=== PATIENT | male | born 1950 | race Caucasian/White ===

== ENCOUNTER 2016-06-12 12:24 | Inpatient (IN) | payer OTHER ==
[~2016-06-12] VITALS: Ht 180.3 cm; Wt 59.4 kg
[~2016-06-12 12:24] MED LIST: ACIDOPHILUS1 EAC4 PO; AMITIZA24 MICROGR PO; AMITIZA8 MICROGRA PO; AMLODIPINE BESYL5 MG PO; ANTACID ULTRA1000 M1 PO; ATIVAN0.5 MG PO; ATIVAN1 MG PO; ATROVENT 00.5 MG/2.5 IH; B COMPLETE1 EACH PO; BACTRIM,SEPT1 TABLET PO; CALCITRIOL0.25 MCG PO; CALCIUM ACETAT667 M2 PO; CALCIUM ACETAT667 MG PO; CELEXA20 MG PO; CIPRO250 MG PO; CIPRO750 MG PO; CITALOPRAM HBR20 MG PO; CITALOPRAM HBR40 MG PO; CLARITIN,ALAVAR10 MG PO; CLONIDINE HCL0.1 MG PO; COMBIVENT RESPIM4 GM IH; COMPAZINE5 MG PO; COMPLETE MULTI1 EAC1 PO; COUMADIN PO; COUMADIN1 MG PO; COUMADIN2 MG PO; COUMADIN3 MG PO; COUMADIN4 MG PO; COUMADIN5 MG PO; COZAAR25 MG PO; CYCLOBENZAPRINE10 MG PO; DEPAKOTE500 MG PO; DESYREL100 MG PO; DESYREL300 MG PO; DILAUDID2 MG PO; DIVALPROEX SOD500 MG PO; DOCUSATE SODIU100 MG PO; DULCOLAX10 MG PR; DUONEB 2.5-0.5 M3 ML IH; DURAGESIC50 MCG TD; DURAGESIC75 MCG TD; EFUDEX 5% CREAM25 GM TP; EPOGEN,PRO20000 UNIT SC; ERGOCALCIF50000 UNIT PO; FENOFIBRATE54 M1 PO; FENTANYL1 EAC2 TD; FENTANYL1 EAC5 TD; FISH OIL 1,0001 EA10 PO; FISH OIL 1,0001 EAC7 PO; FLEET ENEMA-AD118 ML PR; FLEET MINERAL133 ML PR; FLEXERIL10 MG PO; FLOMAX0.4 MG PO; FLONASE16 G1 BOTH NARES; FLUOROURACIL40 GM TP; GABAPENTIN100 MG PO; GABAPENTIN300 MG PO; GABAPENTIN400 MG PO; GENTAMICIN SULF30 GM TP; GLIPIZIDE10 MG PO; GLIPIZIDE5 MG PO; GLUCERNA 1 CAL237 ML PO; HEMORRHOIDAL OI57 G2 PR; HEPARIN SO5000 UNITS SC; HYDRALAZINE HCL25 MG PO; HYDROMORPHONE HC2 MG PO; IRON325 M1 PO; KADIAN30 MG PO; KEFLEX500 MG PO; KLONOPIN0.5 M1 PO; LACTULOSE10 GM/151 PO; LASIX80 MG PO; LEVAQUIN500 MG PO; LEXAPRO10 MG PO; LIDOCAINE700 MG TD; LISINOPRIL20 MG PO; LORAZEPAM0.5 MG PO; LORAZEPAM1 MG PO; LOSARTAN POTASS25 MG PO; LOVENOX80 MG/0.8 SC; MEGACE40 MG PO; MEGESTROL ACETA20 MG PO; METOCLOPRAMIDE H5 MG PO; METOPROLOL TART25 MG PO; MILK OF MAGN PO; MILK OF MAGNESI10 ML PO; MORPHINE SULFAT30 M1 PO; MOXIFLOXACIN H400 MG PO; MUCINEX600 MG PO; NEURONTIN300 MG PO; NEURONTIN600 MG PO; NICODERM CQ1 EAC1 TD; NICODERM CQ1 EAC2 TD; NORVASC5 MG PO; OXYCODONE HCL5 MG PO; PANTOPRAZOLE SO40 MG PO; PERCOCET 5/31 TABLET PO; POLYETHYLENE GL17 GM PO; PRAVACHOL40 MG PO; PRAVACHOL80 MG PO; PRAVASTATIN SOD40 MG PO; PROAIR HFA8.5 GM IH; PROBIOTIC1 EAC2 PO; PROCHLORPERAZINE5 MG PO; PROMETHAZINE HC25 M1 PO; PROTONIX40 MG PO; PROVENTIL,2.5 MG/3 M IH; RENO CAPS SOFTGE1 MG PO; RENVELA800 MG PO; ROCEPHIN 2 GM VI2 GM IM; SANTYL30 GM TP; SILVADENE20 GM TP; SIMVASTATIN20 MG PO; SODIUM BICARBO325 MG PO; SYMBICORT60 INHALA1 IH; SYMBICORT60 INHALAT IH; TAMIFLU75 MG PO; TAMSULOSIN HCL0.4 MG PO; TRAMADOL HCL50 MG PO; TRAZODONE HCL100 MG PO; TYLENOL REGULA325 MG PO; TYLENOL WITH C1 EACH PO; ULTRAM50 MG PO; VENTOLIN HFA18 GM IH; VITAMIN D31000 UNI2 PO; VITAMIN D31000 UNIT PO; VITAMIN D3400 UNI1 PO; WARFARIN SODIU2.5 MG PO; WARFARIN SODIUM3 MG PO; [UNRECOGNIZED DRUG - OTHER] IV
[2016-06-12 20:07] LABS: CHLORIDE 93 mEq/L (99-109); POTASSIUM 5.1 mEq/L (3.7-5.4); SODIUM 140 mEq/L (136-147)
[2016-06-12 20:09] LABS: GLUCOSE 76 mg/dL (70-99)
[2016-06-12 20:10] LABS: ANION GAP 12 MEQ/L (2-14)
[2016-06-12 20:10] LABS: INTER. NORMALIZED RATIO 1.6; PTT 103.1 (25-32)
[2016-06-12 20:11] LABS: MCH 29.6 PG (29.0-34.0); MCHC 30.5 G/DL (30.0-36.0); MCV 96.9 FL (86-99); MEAN PLAT.VOLUME 10.6 uM^3 (9.0-12.4); PLATELET COUNT 153 K/uL (156-360); RBC DIS.WIDTH-CV 17.1 % (11.8-14.6); RBC DIS.WIDTH-SD 55.4 % (39-53); RED BLOOD COUNT 1.96 M/uL (4.00-5.50); WHITE BLOOD COUNT 4.9 K/uL (4.1-10.2)
[2016-06-12 20:13] LABS: GFR ESTIMATE (CALCULATED) 13 mL/min/; UREA NITROGEN (BUN) 50 mg/dL (9-23)
[2016-06-12 20:15] LABS: CREATINE KINASE 44 IU/L (1-294)
[2016-06-12] MEDS ORDERED: VIBRAMYCIN100 MG PO (21:42)
[2016-06-12] MEDS ORDERED: CLONIDINE HCL0.1 MG PO (21:42)
[2016-06-12] MEDS ORDERED: LIPITOR10 MG PO (21:47)
[2016-06-12] MEDS ORDERED: WELLBUTRIN SR150 MG PO (21:47)
[2016-06-12] MEDS ORDERED: PHENERGAN-CODE120 ML PO (21:50)
[2016-06-12 22:02] VITALS: BP 119/49
[2016-06-13 02:07] VITALS: BP 136/65
[2016-06-13 02:12] LABS: POINT-OF-CARE METER ID UU14188577
[2016-06-13 04:05] VITALS: BP 122/58
[2016-06-13 07:43] LABS: ALKALINE PHOSPHATASE 86 IU/L (3-129); ANION GAP 9 MEQ/L (2-14); CHLORIDE 92 MEQ/L (99-109); GFR ESTIMATE (CALCULATED) 11 mL/min/; GLUCOSE 85 mg/dL (70-99); MAGNESIUM 2.1 mg/dl (1.3-2.7); POTASSIUM 5.4 MEQ/L (3.7-5.4); SAMPLE HEMOLYSIS CHECK 0; SAMPLE ICTERIC CHECK 0; SAMPLE LIPEMIA CHECK 0; SODIUM 138 MEQ/L (136-147); TOTAL BILIRUBIN 0.7 MG/DL (0.0-1.0); UREA NITROGEN (BUN) 53 mg/dL (9-23)
[2016-06-13 08:03] LABS: EOSINOPHIL (%) 3.3 % (0-5); EOSINOPHIL COUNT 0.2 K/uL (0-0.3); HEMATOCRIT 20.3 % (38.0-50.0); LYMPHOCYTE COUNT 0.7 K/uL (1.0-2.8); MCH 29.5 PG (29.0-34.0); MEAN PLAT.VOLUME 11.1 uM^3 (9.0-12.4); MONOCYTE (%) 11.4 % (3-12); MONOCYTE COUNT 0.6 K/uL (0-0.8); NEUTROPHIL (%) 72.2 % (45-76); PLATELET COUNT 165 K/uL (156-360); RBC DIS.WIDTH-CV 17.7 % (11.8-14.6); WHITE BLOOD COUNT 5.5 K/uL (4.1-10.2)
[2016-06-13 08:05] VITALS: BP 134/62
[2016-06-13 08:12] LABS: MCV 92.3 FL (86-99)
[2016-06-13 12:34] LABS: INTER. NORMALIZED RATIO 1.4; PROTHROMBIN TIME 14.5 (9.2-11.2)
[2016-06-13 13:05] VITALS: BP 151/70
[2016-06-13 13:53] LABS: POINT-OF-CARE METER ID UU14149397
[2016-06-13 15:57] VITALS: BP 143/66
[2016-06-13 20:14] VITALS: BP 141/63
[2016-06-13 22:09] LABS: POINT-OF-CARE METER ID UU14188577
[2016-06-14] VITALS (7 sets, daily range): BP systolic 131–144; BP diastolic 60–74
[2016-06-14 05:45] LABS: INTER. NORMALIZED RATIO 2.3
[2016-06-14 06:17] LABS: PROTHROMBIN TIME 23.7 (9.2-11.2)
[2016-06-14 06:46] LABS: POINT-OF-CARE METER ID UU14188577
[2016-06-14 10:45] LABS: EOSINOPHIL (%) 3.3 % (0-5); EOSINOPHIL COUNT 0.2 K/uL (0-0.3); HEMATOCRIT 26.7 % (38.0-50.0); IMMATURE GRANULOCYTE (%) 0.4 % (0.0-0.7); LYMPHOCYTE COUNT 0.7 K/uL (1.0-2.8); MCH 28.3 PG (29.0-34.0); MCHC 31.1 G/DL (30.0-36.0); MCV 91.1 FL (86-99); MEAN PLAT.VOLUME 10.2 uM^3 (9.0-12.4); MONOCYTE (%) 13.6 % (3-12); MONOCYTE COUNT 0.8 K/uL (0-0.8); NEUTROPHIL (%) 69.3 % (45-76); NEUTROPHIL COUNT 3.8 K/uL (1.8-6.4); PLATELET COUNT 183 K/uL (156-360); RBC DIS.WIDTH-CV 18.4 % (11.8-14.6); RBC DIS.WIDTH-SD 61.2 % (39-53); WHITE BLOOD COUNT 5.5 K/uL (4.1-10.2)
[2016-06-14 10:46] LABS: RED BLOOD COUNT 2.93 M/uL (4.00-5.50)
[2016-06-14 12:05] LABS: POINT-OF-CARE METER ID UU14188577
[2016-06-14 16:55] LABS: POINT-OF-CARE METER ID UU14188577
[2016-06-14 21:59] LABS: POINT-OF-CARE METER ID UU14188577
[2016-06-15 04:12] VITALS: BP 149/77
[2016-06-15 06:34] LABS: PROTHROMBIN TIME 20.9 (9.2-11.2)
[2016-06-15 06:39] LABS: HEMATOCRIT 25.8 % (38.0-50.0); MCH 29.9 PG (29.0-34.0); MCHC 32.2 G/DL (30.0-36.0); MCV 92.8 FL (86-99); RBC DIS.WIDTH-CV 17.5 % (11.8-14.6); RBC DIS.WIDTH-SD 59.4 % (39-53); RED BLOOD COUNT 2.78 M/uL (4.00-5.50); WHITE BLOOD COUNT 6.9 K/uL (4.1-10.2)
[2016-06-15 06:50] LABS: ANION GAP 12 MEQ/L (2-14); CHLORIDE 95 MEQ/L (99-109); GFR ESTIMATE (CALCULATED) 12 mL/min/; GLUCOSE 103 mg/dL (70-99); POTASSIUM 5.2 MEQ/L (3.7-5.4); SAMPLE HEMOLYSIS CHECK 0; SAMPLE ICTERIC CHECK 0; SAMPLE LIPEMIA CHECK 0; SODIUM 136 MEQ/L (136-147); UREA NITROGEN (BUN) 44 mg/dL (9-23)
[2016-06-15 06:51] LABS: POINT-OF-CARE METER ID UU14188577
[2016-06-15 07:15] LABS: MEAN PLAT.VOLUME 10.8 uM^3 (9.0-12.4); PLATELET COUNT 182 K/uL (156-360)
[2016-06-15 11:46] LABS: POINT-OF-CARE METER ID UU14188577
[2016-06-15 12:23] VITALS: BP 128/67
[2016-06-15 15:41] VITALS: BP 123/63
[2016-06-15 16:30] LABS: POINT-OF-CARE METER ID UU14188577
[2016-06-15 19:54] VITALS: BP 114/56
[2016-06-15 21:12] LABS: POINT-OF-CARE METER ID UU14149397
[2016-06-15 23:44] VITALS: BP 123/61
[2016-06-16 04:07] VITALS: BP 126/59
[2016-06-16 06:09] LABS: INTER. NORMALIZED RATIO 1.6; PROTHROMBIN TIME 16.2 (9.2-11.2)
[2016-06-16 08:45] LABS: MCH 28.4 PG (29.0-34.0); MCHC 30.7 G/DL (30.0-36.0); MCV 92.4 FL (86-99); MEAN PLAT.VOLUME 10.4 uM^3 (9.0-12.4); PLATELET COUNT 206 K/uL (156-360); RBC DIS.WIDTH-CV 17.5 % (11.8-14.6); RBC DIS.WIDTH-SD 58.5 % (39-53); RED BLOOD COUNT 3.03 M/uL (4.00-5.50); WHITE BLOOD COUNT 5.5 K/uL (4.1-10.2)
[2016-06-16 09:03] VITALS: BP 116/56
[2016-06-16 09:06] LABS: EOSINOPHIL (%) 6.9 % (0-5); EOSINOPHIL COUNT 0.4 K/uL (0-0.3); IMMATURE GRANULOCYTE (%) 0.2 % (0.0-0.7); MONOCYTE (%) 12.1 % (3-12); MONOCYTE COUNT 0.7 K/uL (0-0.8); NEUTROPHIL (%) 62.6 % (45-76); NEUTROPHIL COUNT 3.5 K/uL (1.8-6.4)
[2016-06-16 12:14] LABS: POINT-OF-CARE METER ID UU14188577
[2016-06-16 12:30] VITALS: BP 125/59
[2016-06-16 16:09] LABS: POINT-OF-CARE METER ID UU14188577
[2016-06-16 16:46] VITALS: BP 143/68
[2016-06-16 19:39] VITALS: BP 130/60
[2016-06-16 21:20] LABS: POINT-OF-CARE METER ID UU14188577
[2016-06-17] VITALS (7 sets, daily range): BP systolic 115–150; BP diastolic 60–72
[2016-06-17 04:56] LABS: HEMATOCRIT 27.3 % (38.0-50.0); MCH 29.3 PG (29.0-34.0); MCHC 31.1 G/DL (30.0-36.0); MCV 94.1 FL (86-99); MEAN PLAT.VOLUME 9.9 uM^3 (9.0-12.4); PLATELET COUNT 196 K/uL (156-360); RBC DIS.WIDTH-CV 17.1 % (11.8-14.6); RBC DIS.WIDTH-SD 55.2 % (39-53); WHITE BLOOD COUNT 5.7 K/uL (4.1-10.2)
[2016-06-17 05:08] LABS: CHLORIDE 95 mEq/L (99-109); POTASSIUM 5.4 mEq/L (3.7-5.4); SODIUM 136 mEq/L (136-147)
[2016-06-17 05:09] LABS: GLUCOSE 90 mg/dL (70-99)
[2016-06-17 05:11] LABS: ANION GAP 11 MEQ/L (2-14)
[2016-06-17 05:13] LABS: GFR ESTIMATE (CALCULATED) 12 mL/min/
[2016-06-17 05:14] LABS: UREA NITROGEN (BUN) 45 mg/dL (9-23)
[2016-06-17 05:26] LABS: INTER. NORMALIZED RATIO 1.8; PROTHROMBIN TIME 18.3 (9.2-11.2)
[2016-06-17 11:21] LABS: POINT-OF-CARE METER ID UU14149397
[2016-06-17 22:23] LABS: POINT-OF-CARE METER ID UU14149397
[2016-06-18 05:06] LABS: HEMATOCRIT 26.1 % (38.0-50.0); MCH 29.4 PG (29.0-34.0); MCHC 31.4 G/DL (30.0-36.0); MCV 93.5 FL (86-99); MEAN PLAT.VOLUME 10.5 uM^3 (9.0-12.4); PLATELET COUNT 226 K/uL (156-360); RBC DIS.WIDTH-CV 16.8 % (11.8-14.6); RBC DIS.WIDTH-SD 54.2 % (39-53); RED BLOOD COUNT 2.79 M/uL (4.00-5.50)
[2016-06-18 05:11] LABS: CHLORIDE 98 mEq/L (99-109); POTASSIUM 5.2 mEq/L (3.7-5.4); SODIUM 139 mEq/L (136-147)
[2016-06-18 05:12] LABS: MAGNESIUM 2.4 mg/dL (1.3-2.7); PROTHROMBIN TIME 21.3 (9.2-11.2)
[2016-06-18 05:15] LABS: ANION GAP 12 MEQ/L (2-14)
[2016-06-18 05:17] LABS: GFR ESTIMATE (CALCULATED) 9 mL/min/
[2016-06-18 05:18] LABS: UREA NITROGEN (BUN) 62 mg/dL (9-23)
[2016-06-18 05:22] LABS: GLUCOSE 115 mg/dL (70-99)
[2016-06-18 05:25] VITALS: BP 124/60
[2016-06-18 07:10] LABS: POINT-OF-CARE METER ID UU14149397
[2016-06-18 11:57] VITALS: BP 167/78
[2016-06-18] MEDS ORDERED: OXYCODONE HCL15 MG PO (14:15)
[2016-06-18] MEDS ORDERED: COUMADIN2 MG PO (14:17)
== END 2016-06-18 17:00 | DRG 535 ==
LOC: EME 12:24 → 3EAST 20:41 → EDOF 20:41 → 3EAST 06-13 01:00
PROVIDERS: Emergency Medicine; Family Medicine; Hospitalist; Internal Medicine; Nurse Practitioner Adult Health; Physician Assistant Medical
PROC: 30233N1 Transfusion of Nonautologous Red Blood Cells into Peripheral Vein, Percutaneous Approach (ICD-10-PCS; principal; 2016-06-12)
PROC: 5A1D60Z (ICD-10-PCS; 2016-06-13)
DX: S32.591A Other specified fracture of right pubis, initial encounter for closed fracture (principal); N18.6 End stage renal disease; J18.9 Pneumonia, unspecified organism; I42.9 Cardiomyopathy, unspecified; D62 Acute posthemorrhagic anemia; I13.2 Hypertensive heart and chronic kidney disease with heart failure and with stage 5 chronic kidney disease, or end stage renal disease; Z68.1 Body mass index [BMI] 19.9 or less, adult; D68.2 Hereditary deficiency of other clotting factors; J90 Pleural effusion, not elsewhere classified; M84.48XA Pathological fracture, other site, initial encounter for fracture; F33.9 Major depressive disorder, recurrent, unspecified; W18.39XA Other fall on same level, initial encounter; E11.22 Type 2 diabetes mellitus with diabetic chronic kidney disease; E11.40 Type 2 diabetes mellitus with diabetic neuropathy, unspecified; F17.210 Nicotine dependence, cigarettes, uncomplicated; I25.10 Atherosclerotic heart disease of native coronary artery without angina pectoris; I35.0 Nonrheumatic aortic (valve) stenosis; K21.9 Gastro-esophageal reflux disease without esophagitis; G25.81 Restless legs syndrome; S70.01XA Contusion of right hip, initial encounter; R63.4 Abnormal weight loss; G89.29 Other chronic pain; G40.909 Epilepsy, unspecified, not intractable, without status epilepticus; G43.909 Migraine, unspecified, not intractable, without status migrainosus; G47.30 Sleep apnea, unspecified; R09.02 Hypoxemia; D63.1 Anemia in chronic kidney disease; N40.0 Benign prostatic hyperplasia without lower urinary tract symptoms; E83.39 Other disorders of phosphorus metabolism; D69.6 Thrombocytopenia, unspecified; Z99.2 Dependence on renal dialysis; Z91.81 History of falling; Z98.61 Coronary angioplasty status; Z86.14 Personal history of Methicillin resistant Staphylococcus aureus infection; Z95.2 Presence of prosthetic heart valve; Z79.01 Long term (current) use of anticoagulants; Z89.432 Acquired absence of left foot; Y92.018 Other place in single-family (private) house as the place of occurrence of the external cause; Z88.0 Allergy status to penicillin
CPT/HCPCS: 71010; 72192; 73502; 80048; 80053; 80069; 82550; 82948; 83735; 84100; 85025; 85027; 85610; 85730; 86850; 86900; 86901; 86920; 87070; 87205; 94640 76; 94667; 94668; 94799; 99202; 99281; 99285; J0881; J1270; J1756; J1815; J3010; J7050; P9016; Q0164

== ENCOUNTER 2016-06-26 02:40 | Inpatient (IN) | payer OTHER ==
[~2016-06-26] VITALS: Ht 180.3 cm; Wt 62.3 kg
[~2016-06-26 02:40] MED LIST changes: +LIPITOR10 MG PO; +OXYCODONE HCL15 MG PO; +PHENERGAN-CODE120 ML PO; +VIBRAMYCIN100 MG PO; +WELLBUTRIN SR150 MG PO
[2016-06-26 04:29] LABS: HEMATOCRIT 29.6 % (38.0-50.0); MCH 29.5 PG (29.0-34.0); MCHC 30.1 G/DL (30.0-36.0); MEAN PLAT.VOLUME 9.9 uM^3 (9.0-12.4); PLATELET COUNT 176 K/uL (156-360); RBC DIS.WIDTH-CV 17.2 % (11.8-14.6); RBC DIS.WIDTH-SD 56.9 % (39-53); RED BLOOD COUNT 3.02 M/uL (4.00-5.50); WHITE BLOOD COUNT 6.4 K/uL (4.1-10.2)
[2016-06-26 04:34] LABS: INFLUENZA A VIRAL ANTIGEN NEGATIVE; INFLUENZA B VIRAL ANTIGEN NEGATIVE
[2016-06-26 04:34] LABS: BASE EXCESS 15.2 mEq/L (-3 to +3); BICARBONATE 40.8 mEq/L (22-26); CARBOXY HGB 1.9 % (0-5); COMMENTS - BLOOD GASES C+; DEVICE HHFNC; METHEMOGLOBIN 0.8 % (0-1.5); O2 FLOW 45 L/MIN; PCO2 56 mm Hg (35-45); PO2 79 mm Hg (80-100); SITE LR; pH 7.47 (7.35-7.45)
[2016-06-26 04:35] LABS: FI02 90 %
[2016-06-26 04:36] LABS: CHLORIDE 97 mEq/L (99-109); POTASSIUM 4.6 mEq/L (3.7-5.4); SODIUM 144 mEq/L (136-147)
[2016-06-26 04:37] LABS: GLUCOSE 72 mg/dL (70-99)
[2016-06-26 04:39] LABS: ANION GAP 11 MEQ/L (2-14)
[2016-06-26 04:40] LABS: INTER. NORMALIZED RATIO 3.1
[2016-06-26 04:41] LABS: GFR ESTIMATE (CALCULATED) 15 mL/min/
[2016-06-26 04:42] LABS: UREA NITROGEN (BUN) 26 mg/dL (9-23)
[2016-06-26 04:48] LABS: PROTHROMBIN TIME 32.4 (9.2-11.2); PTT 70.6 (25-32); TROP-I INTERPRETATION NEGATIVE; TROPONIN-I 0.04 ng/mL (0.0-0.30)
[2016-06-26 05:31] LABS: POINT-OF-CARE METER ID UU14100415
[2016-06-26 08:06] VITALS: BP 152/72; BP 52/72
[2016-06-26 08:14] LABS: BASOPHIL COUNT 0.1 K/uL (0-0.1); EOSINOPHIL (%) 4.3 % (0-5); EOSINOPHIL COUNT 0.3 K/uL (0-0.3); IMMATURE GRANULOCYTE (%) 0.2 % (0.0-0.7); LYMPHOCYTE COUNT 1.3 K/uL (1.0-2.8); MONOCYTE (%) 8.3 % (3-12); MONOCYTE COUNT 0.5 K/uL (0-0.8); NEUTROPHIL (%) 66.2 % (45-76); NEUTROPHIL COUNT 4.2 K/uL (1.8-6.4)
[2016-06-26 09:27] LABS: TOTAL BILIRUBIN 0.6 mg/dL (0.0-1.0)
[2016-06-26 09:28] LABS: ALKALINE PHOSPHATASE 137 IU/L (3-129)
[2016-06-26 09:49] LABS: METH RESISTANT S AUREUS PCR POSITIVE (NEGATIVE)
[2016-06-26] MEDS ORDERED: LIPITOR10 MG PO (09:56)
[2016-06-26 09:58] LABS: PROBE CHECK PASS
[2016-06-26] MEDS ORDERED: CALCIUM ACETAT667 MG PO (09:58)
[2016-06-26] MEDS ORDERED: VOLTAREN 1% GE100 GM TP (10:03)
[2016-06-26] MEDS ORDERED: COLACE100 MG PO (10:04)
[2016-06-26] MEDS ORDERED: NICODERM CQ1 EAC1 TD (10:08)
[2016-06-26] MEDS ORDERED: NEPRO CARB STE237 ML PO (10:08)
[2016-06-26] MEDS ORDERED: NOVOLOG 10100 UNITS/ SC (10:10)
[2016-06-26] MEDS ORDERED: RENAL CAPS SOFTG1 MG PO (10:12)
[2016-06-26] MEDS ORDERED: COUMADIN2 MG PO (10:14)
[2016-06-26] MEDS ORDERED: OXYCODONE HCL20 M1 PO (10:17)
[2016-06-26 11:27] VITALS: BP 158/74
[2016-06-26 15:30] VITALS: BP 154/78
[2016-06-26 19:36] VITALS: BP 145/71
[2016-06-27 00:02] VITALS: BP 125/77
[2016-06-27 05:45] LABS: INTER. NORMALIZED RATIO 3.9; PROTHROMBIN TIME 41.9 (9.2-11.2)
[2016-06-27 06:01] LABS: HEMATOCRIT 28.4 % (38.0-50.0); MCH 29.4 PG (29.0-34.0); MCHC 30.6 G/DL (30.0-36.0); MCV 95.9 FL (86-99); MEAN PLAT.VOLUME 10.4 uM^3 (9.0-12.4); PLATELET COUNT 162 K/uL (156-360); RBC DIS.WIDTH-CV 16.9 % (11.8-14.6); RBC DIS.WIDTH-SD 58.9 % (39-53); RED BLOOD COUNT 2.96 M/uL (4.00-5.50)
[2016-06-27 06:02] LABS: WHITE BLOOD COUNT 3.2 K/uL (4.1-10.2)
[2016-06-27 06:12] LABS: ANION GAP 11 MEQ/L (2-14); CHLORIDE 93 MEQ/L (99-109); GFR ESTIMATE (CALCULATED) 10 mL/min/; MAGNESIUM 2.8 mg/dl (1.3-2.7); POTASSIUM 4.9 MEQ/L (3.7-5.4); SAMPLE HEMOLYSIS CHECK 0; SAMPLE ICTERIC CHECK 0; SAMPLE LIPEMIA CHECK 0; SODIUM 137 MEQ/L (136-147)
[2016-06-27 06:13] LABS: GLUCOSE 281 mg/dL (70-99); UREA NITROGEN (BUN) 40 mg/dL (9-23)
[2016-06-27 12:16] VITALS: BP 159/75
[2016-06-27 16:12] VITALS: BP 151/68
[2016-06-27 20:36] VITALS: BP 158/73
[2016-06-28] VITALS (7 sets, daily range): BP systolic 100–160; BP diastolic 40–70
[2016-06-28 05:39] LABS: INTER. NORMALIZED RATIO 2.4; PROTHROMBIN TIME 25.3 (9.2-11.2)
[2016-06-29 04:10] VITALS: BP 140/74
[2016-06-29 06:04] LABS: INTER. NORMALIZED RATIO 1.7; PROTHROMBIN TIME 17.5 (9.2-11.2)
[2016-06-29 08:30] VITALS: BP 140/50
[2016-06-29 09:34] LABS: ANION GAP 10 MEQ/L (2-14); CHLORIDE 97 MEQ/L (99-109); POTASSIUM 4.2 MEQ/L (3.7-5.4); SAMPLE HEMOLYSIS CHECK 0; SAMPLE ICTERIC CHECK 0; SAMPLE LIPEMIA CHECK 0; SODIUM 138 MEQ/L (136-147)
[2016-06-29 09:46] LABS: GFR ESTIMATE (CALCULATED) 11 mL/min/; UREA NITROGEN (BUN) 53 mg/dL (9-23)
[2016-06-29 09:47] LABS: GLUCOSE 133 mg/dL (70-99)
[2016-06-29 10:51] LABS: HEMATOCRIT 31.7 % (38.0-50.0); MCH 29.6 PG (29.0-34.0); MCHC 30.3 G/DL (30.0-36.0); MCV 97.8 FL (86-99); MEAN PLAT.VOLUME 11.2 uM^3 (9.0-12.4); PLATELET COUNT 178 K/uL (156-360); RBC DIS.WIDTH-CV 17.2 % (11.8-14.6); RBC DIS.WIDTH-SD 61.1 % (39-53); RED BLOOD COUNT 3.24 M/uL (4.00-5.50)
[2016-06-29 10:58] LABS: WHITE BLOOD COUNT 8.5 K/uL (4.1-10.2)
[2016-06-29 16:30] VITALS: BP 100/40
[2016-06-29 20:31] VITALS: BP 130/58
[2016-06-29 23:39] VITALS: BP 120/59
[2016-06-30 07:34] VITALS: BP 121/84
[2016-06-30 10:42] LABS: INTER. NORMALIZED RATIO 1.3; PROTHROMBIN TIME 13.4 (9.2-11.2)
[2016-06-30 16:20] VITALS: BP 100/50
[2016-06-30 21:31] VITALS: BP 141/67
[2016-06-30 23:34] VITALS: BP 131/68
[2016-07-01 06:41] LABS: INTER. NORMALIZED RATIO 1.3; PROTHROMBIN TIME 13.4 (9.2-11.2)
[2016-07-01 07:32] VITALS: BP 154/72
[2016-07-01 16:42] VITALS: BP 154/73
[2016-07-01] MEDS ORDERED: PREDNISONE10 MG PO (17:55)
[2016-07-01] MEDS ORDERED: LEVAQUIN500 MG PO (17:56)
[2016-07-02 00:15] VITALS: BP 165/76
[2016-07-02 05:46] LABS: INTER. NORMALIZED RATIO 1.3; PROTHROMBIN TIME 13.4 (9.2-11.2)
[2016-07-02 06:35] VITALS: BP 150/70
[2016-07-02 08:45] LABS: EOSINOPHIL (%) 2.3 % (0-5); EOSINOPHIL COUNT 0.2 K/uL (0-0.3); HEMATOCRIT 30.8 % (38.0-50.0); IMMATURE GRANULOCYTE (%) 0.6 % (0.0-0.7); INSTRUMENT ABS NEUTROPHIL CT 5.2 K/uL; MCH 29.7 PG (29.0-34.0); MCHC 30.5 G/DL (30.0-36.0); MCV 97.2 FL (86-99); MEAN PLAT.VOLUME 10.2 uM^3 (9.0-12.4); MONOCYTE (%) 8.7 % (3-12); MONOCYTE COUNT 0.6 K/uL (0-0.8); NEUTROPHIL (%) 74.5 % (45-76); NEUTROPHIL COUNT 5.2 K/uL (1.8-6.4); PLATELET COUNT 154 K/uL (156-360); RBC DIS.WIDTH-CV 18.1 % (11.8-14.6); RBC DIS.WIDTH-SD 62.5 % (39-53); RED BLOOD COUNT 3.17 M/uL (4.00-5.50)
[2016-07-02 08:57] LABS: ANION GAP 10 MEQ/L (2-14); CHLORIDE 100 MEQ/L (99-109); SAMPLE HEMOLYSIS CHECK 0; SAMPLE ICTERIC CHECK 0; SAMPLE LIPEMIA CHECK 0; SODIUM 138 MEQ/L (136-147)
[2016-07-02 09:13] LABS: GFR ESTIMATE (CALCULATED) 9 mL/min/; GLUCOSE 109 mg/dL (70-99); UREA NITROGEN (BUN) 67 mg/dL (9-23)
== END 2016-07-02 16:09 | DRG 190 ==
LOC: EME → EDBD 02:40 → 3EAST 05:36 → EDOF 05:36 → 3EAST 07:25
PROVIDERS: Emergency Medicine; Internal Medicine; Internal Medicine Nephrology
PROC: 5A1D60Z (ICD-10-PCS; principal; 2016-06-27)
DX: J44.0 Chronic obstructive pulmonary disease with (acute) lower respiratory infection (principal); J18.9 Pneumonia, unspecified organism; N18.6 End stage renal disease; J96.21 Acute and chronic respiratory failure with hypoxia; D68.51 Activated protein C resistance; I13.2 Hypertensive heart and chronic kidney disease with heart failure and with stage 5 chronic kidney disease, or end stage renal disease; I42.9 Cardiomyopathy, unspecified; J98.11 Atelectasis; J44.1 Chronic obstructive pulmonary disease with (acute) exacerbation; Z99.2 Dependence on renal dialysis; I11.0 Hypertensive heart disease with heart failure; E11.65 Type 2 diabetes mellitus with hyperglycemia; Z99.81 Dependence on supplemental oxygen; E11.22 Type 2 diabetes mellitus with diabetic chronic kidney disease; I50.9 Heart failure, unspecified; I25.10 Atherosclerotic heart disease of native coronary artery without angina pectoris; K21.9 Gastro-esophageal reflux disease without esophagitis; G47.33 Obstructive sleep apnea (adult) (pediatric); M79.7 Fibromyalgia; Z89.421 Acquired absence of other right toe(s); Z89.432 Acquired absence of left foot; Z95.2 Presence of prosthetic heart valve; E66.9 Obesity, unspecified; Z95.1 Presence of aortocoronary bypass graft; G40.909 Epilepsy, unspecified, not intractable, without status epilepticus; B18.2 Chronic viral hepatitis C; I35.0 Nonrheumatic aortic (valve) stenosis; S32.591D Other specified fracture of right pubis, subsequent encounter for fracture with routine healing; D50.9 Iron deficiency anemia, unspecified; E87.79 Other fluid overload
CPT/HCPCS: 36600; 71010; 71020; 80048; 80053; 80069; 80200; 82040; 82803; 82948; 83605; 83735; 83880; 84484; 85025; 85027; 85610; 85730; 86708 90; 87040; 87070; 87205; 87340; 87449; 87502; 87641; 93005; 94640; 94640 76; 94799; 97530 GO; 99202; 99281; 99285; J0881; J1270; J1644; J1756; J1956; J2920; J2930; J3260; J7050; J7512

== ENCOUNTER 2016-08-15 10:02 | Inpatient (IN) | payer OTHER ==
[~2016-08-15] VITALS: Ht 180.3 cm; Wt 68.5 kg
[~2016-08-15 10:02] MED LIST changes: +COLACE100 MG PO; +NEPRO CARB STE237 ML PO; +NOVOLOG 10100 UNITS/ SC; +OXYCODONE HCL20 M1 PO; +PREDNISONE10 MG PO; +RENAL CAPS SOFTG1 MG PO; +VOLTAREN 1% GE100 GM TP
[2016-08-15 11:08] LABS: ADD MIUA? YES; BILIRUBIN NEGATIVE; BLOOD SMALL; COLOR AMBER ((YELLOW)); GLUCOSE (STRIP) NEGATIVE; KETONES NEGATIVE; LEUKOCYTES NEGATIVE; NITRITE NEGATIVE; PROTEIN (STRIP) >=500; SPECIFIC GRAVITY 1.028 (1.000-1.030); UROBILINOGEN 0.2 MG/DL (0.2-1.0)
[2016-08-15 11:28] LABS: CHLORIDE 97 mEq/L (99-109); POTASSIUM 5.3 mEq/L (3.7-5.4); SODIUM 142 mEq/L (136-147)
[2016-08-15 11:30] LABS: GLUCOSE 104 mg/dL (70-99)
[2016-08-15 11:31] LABS: ANION GAP 17 MEQ/L (2-14)
[2016-08-15 11:32] LABS: TOTAL BILIRUBIN 0.6 mg/dL (0.0-1.0)
[2016-08-15 11:33] LABS: ALKALINE PHOSPHATASE 83 IU/L (3-129)
[2016-08-15 11:34] LABS: GFR ESTIMATE (CALCULATED) 21 mL/min/
[2016-08-15 11:35] LABS: UREA NITROGEN (BUN) 20 mg/dL (9-23)
[2016-08-15 11:43] LABS: BACTERIA 2+ /HPF; EPITHELIAL CELLS NONE SEEN /HPF; MUCUS NONE SEEN /LPF; RED BLOOD CELLS 30-40 /HPF (0-5); UCUL ADDED? YES; WHITE BLOOD CELLS 20-30 /HPF (0-5)
[2016-08-15] MEDS ORDERED: WELLBUTRIN XL150 MG PO (11:47)
[2016-08-15] MEDS ORDERED: MIRALAX17 GM PO (11:53)
[2016-08-15 11:55] LABS: EOSINOPHIL (%) 2.8 % (0-5); EOSINOPHIL COUNT 0.2 K/uL (0-0.3); HEMATOCRIT 36.3 % (38.0-50.0); IMMATURE GRANULOCYTE (%) 0.8 % (0.0-0.7); IMMATURE GRANULOCYTE COUNT 0.1 K/uL; INSTRUMENT ABS NEUTROPHIL CT 4.9 K/uL; LYMPHOCYTE COUNT 0.7 K/uL (1.0-2.8); MCH 31.2 PG (29.0-34.0); MCHC 30.9 G/DL (30.0-36.0); MCV 101.1 FL (86-99); MONOCYTE (%) 7.4 % (3-12); MONOCYTE COUNT 0.5 K/uL (0-0.8); NEUTROPHIL (%) 77.6 % (45-76); NEUTROPHIL COUNT 4.9 K/uL (1.8-6.4); NRBC (%) 0.3 /100 WBC (0-0); PLATELET COUNT 95 K/uL (156-360); RBC DIS.WIDTH-CV 18.1 % (11.8-14.6); RBC DIS.WIDTH-SD 67.6 % (39-53); RED BLOOD COUNT 3.59 M/uL (4.00-5.50); WHITE BLOOD COUNT 6.3 K/uL (4.1-10.2)
[2016-08-15] MEDS ORDERED: DEXAMETHASONE2 MG PO (11:56)
[2016-08-15] MEDS ORDERED: COUMADIN3 MG PO (11:57)
[2016-08-15] MEDS ORDERED: LINZESS290 MCG PO (12:03)
[2016-08-15 12:04] LABS: INTER. NORMALIZED RATIO 2.2; PTT 39.5 (25-32)
[2016-08-15] MEDS ORDERED: VENTOLIN HFA18 GM IH (12:05)
[2016-08-15] MEDS ORDERED: ACETAMINOPHEN325 M1 PO (12:07)
[2016-08-15 12:13] LABS: PROTHROMBIN TIME 22.5 (9.2-11.2)
[2016-08-15] MEDS ORDERED: VANCOMYCIN1 GM/200 M IV (12:26)
[2016-08-15 16:36] VITALS: BP 130/58
[2016-08-15 19:27] VITALS: BP 148/72
[2016-08-15 20:40] LABS: METH RESISTANT S AUREUS PCR POSITIVE (NEGATIVE)
[2016-08-15 20:43] LABS: PROBE CHECK PASS
[2016-08-15 21:27] LABS: POINT-OF-CARE METER ID UU13113781
[2016-08-16] VITALS (8 sets, daily range): BP systolic 125–172; BP diastolic 54–82
[2016-08-16 13:36] LABS: PROTHROMBIN TIME 42.3 (9.2-11.2)
[2016-08-16 21:26] LABS: POINT-OF-CARE METER ID UU14162508
[2016-08-17 06:58] LABS: POINT-OF-CARE METER ID UU14162508
[2016-08-17 07:19] VITALS: BP 189/80
[2016-08-17 11:15] VITALS: BP 161/77
[2016-08-17 14:23] LABS: HEMATOCRIT 30.7 % (38.0-50.0); MCH 31.4 PG (29.0-34.0); MCHC 31.3 G/DL (30.0-36.0); MCV 100.3 FL (86-99); MEAN PLAT.VOLUME 11.7 uM^3 (9.0-12.4); PLATELET COUNT 100 K/uL (156-360); RBC DIS.WIDTH-CV 17.6 % (11.8-14.6); RBC DIS.WIDTH-SD 65.1 % (39-53); RED BLOOD COUNT 3.06 M/uL (4.00-5.50); WHITE BLOOD COUNT 7.9 K/uL (4.1-10.2)
[2016-08-17 14:37] LABS: ANION GAP 11 MEQ/L (2-14); CHLORIDE 94 MEQ/L (99-109); GLUCOSE 81 mg/dL (70-99); SAMPLE HEMOLYSIS CHECK 0; SAMPLE ICTERIC CHECK 0; SAMPLE LIPEMIA CHECK 0
[2016-08-17 14:40] LABS: GFR ESTIMATE (CALCULATED) 12 mL/min/; POTASSIUM 6.1 MEQ/L (3.7-5.4); SODIUM 134 MEQ/L (136-147); UREA NITROGEN (BUN) 52 mg/dL (9-23)
[2016-08-17 14:53] LABS: PROTHROMBIN TIME 82.3 (9.2-11.2)
[2016-08-17 15:12] LABS: INTER. NORMALIZED RATIO 7.4
[2016-08-18 03:53] VITALS: BP 128/58
[2016-08-18 06:30] VITALS: BP 146/68
[2016-08-18 07:49] LABS: INTER. NORMALIZED RATIO 9.1
[2016-08-18 11:50] LABS: POINT-OF-CARE METER ID UU14162508
[2016-08-18 15:35] VITALS: BP 166/78
[2016-08-18 23:47] VITALS: BP 163/75
[2016-08-19 07:17] VITALS: BP 191/91
[2016-08-19 07:26] LABS: INTER. NORMALIZED RATIO 1.3; PROTHROMBIN TIME 13.3 (9.2-11.2)
[2016-08-19 15:54] VITALS: BP 193/90
[2016-08-19 16:55] LABS: POINT-OF-CARE METER ID UU14162508
[2016-08-19 20:30] VITALS: BP 184/88
[2016-08-20 03:57] VITALS: BP 158/82
[2016-08-20 08:22] LABS: HEMATOCRIT 30.5 % (38.0-50.0); MCH 31.2 PG (29.0-34.0); MCHC 31.5 G/DL (30.0-36.0); MEAN PLAT.VOLUME 12.3 uM^3 (9.0-12.4); PLATELET COUNT 121 K/uL (156-360); RBC DIS.WIDTH-SD 62.4 % (39-53); RED BLOOD COUNT 3.08 M/uL (4.00-5.50); WHITE BLOOD COUNT 6.2 K/uL (4.1-10.2)
[2016-08-20 08:39] LABS: ANION GAP 13 MEQ/L (2-14); CHLORIDE 99 MEQ/L (99-109); GFR ESTIMATE (CALCULATED) 11 mL/min/; GLUCOSE 84 mg/dL (70-99); SAMPLE HEMOLYSIS CHECK 0; SAMPLE ICTERIC CHECK 0; SAMPLE LIPEMIA CHECK 0; SODIUM 135 MEQ/L (136-147); UREA NITROGEN (BUN) 50 mg/dL (9-23)
[2016-08-20 08:40] LABS: POTASSIUM 6.1 MEQ/L (3.7-5.4); VANCOMYCIN, TROUGH 21.8 MCG/ML (10-20)
[2016-08-20 09:39] LABS: INTER. NORMALIZED RATIO 1.4; PROTHROMBIN TIME 14.1 (9.2-11.2)
[2016-08-20 11:50] VITALS: BP 126/59
[2016-08-20 11:58] LABS: POINT-OF-CARE METER ID UU14162508
[2016-08-20 15:25] VITALS: BP 158/61
[2016-08-20 16:31] LABS: POINT-OF-CARE METER ID UU14162508
[2016-08-20 20:27] VITALS: BP 122/78
[2016-08-20 23:43] VITALS: BP 126/82
[2016-08-21 03:31] VITALS: BP 118/68
[2016-08-21 06:31] LABS: POINT-OF-CARE METER ID UU14162508
[2016-08-21 07:35] LABS: INTER. NORMALIZED RATIO 2.1
[2016-08-21 07:36] LABS: PROTHROMBIN TIME 21.8 (9.2-11.2)
[2016-08-21 07:43] VITALS: BP 154/70
[2016-08-21 11:33] VITALS: BP 146/70
[2016-08-21] MEDS ORDERED: LEVOFLOXACIN500 MG PO (14:31)
[2016-08-21] MEDS ORDERED: VANCOMYCIN HCL1 GM IV (14:32)
[2016-08-21] MEDS ORDERED: COUMADIN1 MG PO (14:33)
[2016-08-21] MEDS ORDERED: NOVOLOG PE100 UNITS/ SC (14:36)
[2016-08-21] MEDS ORDERED: HYDROMORPHONE HC2 MG PO (14:36)
[2016-08-21] MEDS ORDERED: PROTONIX40 MG PO (14:36)
== END 2016-08-21 17:08 | DRG 981 ==
LOC: EME → EDBD 10:02 → EME 10:02 → 2EAST 14:08 → EDOF 14:08 → 4EAST 14:08 → 2EAST 08-16 20:09
PROVIDERS: Emergency Medicine; Internal Medicine; Internal Medicine Nephrology
PROC: 057Y3ZZ Dilation of Upper Vein, Percutaneous Approach (ICD-10-PCS; principal; 2016-08-20)
DX: J44.0 Chronic obstructive pulmonary disease with (acute) lower respiratory infection (principal); J15.9 Unspecified bacterial pneumonia; I13.2 Hypertensive heart and chronic kidney disease with heart failure and with stage 5 chronic kidney disease, or end stage renal disease; L89.150 Pressure ulcer of sacral region, unstageable; E11.22 Type 2 diabetes mellitus with diabetic chronic kidney disease; N18.6 End stage renal disease; D68.51 Activated protein C resistance; I50.30 Unspecified diastolic (congestive) heart failure; Z99.2 Dependence on renal dialysis; D68.32 Hemorrhagic disorder due to extrinsic circulating anticoagulants; E11.21 Type 2 diabetes mellitus with diabetic nephropathy; E11.40 Type 2 diabetes mellitus with diabetic neuropathy, unspecified; E11.51 Type 2 diabetes mellitus with diabetic peripheral angiopathy without gangrene; E11.622 Type 2 diabetes mellitus with other skin ulcer; L97.909 Non-pressure chronic ulcer of unspecified part of unspecified lower leg with unspecified severity; I35.0 Nonrheumatic aortic (valve) stenosis; B19.20 Unspecified viral hepatitis C without hepatic coma; D63.8 Anemia in other chronic diseases classified elsewhere; G40.909 Epilepsy, unspecified, not intractable, without status epilepticus; Z95.2 Presence of prosthetic heart valve; Z95.1 Presence of aortocoronary bypass graft; G81.91 Hemiplegia, unspecified affecting right dominant side; M47.892 Other spondylosis, cervical region; Z86.718 Personal history of other venous thrombosis and embolism; G89.4 Chronic pain syndrome; M25.552 Pain in left hip; M25.551 Pain in right hip; T82.858A Stenosis of other vascular prosthetic devices, implants and grafts, initial encounter; Z87.81 Personal history of (healed) traumatic fracture; I25.10 Atherosclerotic heart disease of native coronary artery without angina pectoris; F33.9 Major depressive disorder, recurrent, unspecified; Z89.439 Acquired absence of unspecified foot; Z22.322 Carrier or suspected carrier of Methicillin resistant Staphylococcus aureus; M87.852 Other osteonecrosis, left femur; M79.7 Fibromyalgia; G47.30 Sleep apnea, unspecified; I42.9 Cardiomyopathy, unspecified; K21.9 Gastro-esophageal reflux disease without esophagitis; E83.39 Other disorders of phosphorus metabolism; N25.81 Secondary hyperparathyroidism of renal origin; D63.1 Anemia in chronic kidney disease; L89.609 Pressure ulcer of unspecified heel, unspecified stage; C44.310 Basal cell carcinoma of skin of unspecified parts of face; D04.4 Carcinoma in situ of skin of scalp and neck; G25.81 Restless legs syndrome; N40.0 Benign prostatic hyperplasia without lower urinary tract symptoms; R09.02 Hypoxemia; N39.0 Urinary tract infection, site not specified; D50.9 Iron deficiency anemia, unspecified; E87.5 Hyperkalemia; E87.70 Fluid overload, unspecified; I95.9 Hypotension, unspecified; Y95 Nosocomial condition; T45.515A Adverse effect of anticoagulants, initial encounter; R60.0 Localized edema; R41.82 Altered mental status, unspecified
CPT/HCPCS: 70450; 71010; 73502; 80048; 80053; 80069; 80202; 81003; 82948; 83605; 84100; 85025; 85027; 85610; 85730; 87040; 87086; 87641; 87801; 92610 GN; 93005; 93931; 94760; 94799; 99202; 99281; 99285; C1725; C1769; J0692; J0696; J0881; J1644; J1756; J1815; J2250; J3010; J3370; J7042; J7050

== ENCOUNTER 2016-09-04 20:55 | Inpatient (IN) | payer OTHER ==
[~2016-09-04] VITALS: Ht 177.8 cm; Wt 54.4 kg
[~2016-09-04 20:55] MED LIST changes: +ACETAMINOPHEN325 M1 PO; +DEXAMETHASONE2 MG PO; +LEVOFLOXACIN500 MG PO; +LINZESS290 MCG PO; +MIRALAX17 GM PO; +NOVOLOG PE100 UNITS/ SC; +VANCOMYCIN HCL1 GM IV; +VANCOMYCIN1 GM/200 M IV; +WELLBUTRIN XL150 MG PO
[2016-09-04 22:16] LABS: HEMATOCRIT 31.8 % (38.0-50.0); MCH 30.1 PG (29.0-34.0); MCHC 30.5 G/DL (30.0-36.0); MCV 98.8 FL (86-99); RBC DIS.WIDTH-CV 17.2 % (11.8-14.6); RBC DIS.WIDTH-SD 62.3 % (39-53); RED BLOOD COUNT 3.22 M/uL (4.00-5.50)
[2016-09-04 22:18] LABS: BASE EXCESS 12.7 mEq/L (-3 to +3); BICARBONATE 37.4 mEq/L (22-26); CARBOXY HGB 2.9 % (0-5); METHEMOGLOBIN 1.1 % (0-1.5); PCO2 48 mm Hg (35-45); PO2 61 mm Hg (80-100)
[2016-09-04 22:19] LABS: COMMENTS - BLOOD GASES A+C+; DEVICE NCHH; FI02 50 %; O2 FLOW 50 L/MIN; SITE RR; TOTAL RESP RATE 20 resp/min
[2016-09-04 22:48] LABS: INTER. NORMALIZED RATIO 8.9
[2016-09-04 22:51] LABS: TROP-I INTERPRETATION POSITIVE; TROPONIN-I 14.97 ng/mL (0.0-0.30)
[2016-09-04 22:58] LABS: EOSINOPHIL (%) 0.8 % (0-5); EOSINOPHIL COUNT 0.1 K/uL (0-0.3); IMMATURE GRANULOCYTE (%) 0.9 % (0.0-0.7); IMMATURE GRANULOCYTE COUNT 0.1 K/uL; INSTRUMENT ABS NEUTROPHIL CT 12.3 K/uL; MONOCYTE (%) 8.5 % (3-12); MONOCYTE COUNT 1.3 K/uL (0-0.8); NEUTROPHIL (%) 82.7 % (45-76); NEUTROPHIL COUNT 12.3 K/uL (1.8-6.4); PLATELET COUNT 164 K/uL (156-360)
[2016-09-04 23:00] LABS: PTT 97 (25-32)
[2016-09-04 23:02] LABS: CHLORIDE 92 mEq/L (99-109); POTASSIUM 4.3 mEq/L (3.7-5.4); SODIUM 137 mEq/L (136-147)
[2016-09-04 23:04] LABS: GLUCOSE 128 mg/dL (70-99)
[2016-09-04 23:05] LABS: ANION GAP 15 MEQ/L (2-14)
[2016-09-04 23:06] LABS: TOTAL BILIRUBIN 0.9 mg/dL (0.0-1.0)
[2016-09-04 23:08] LABS: ALKALINE PHOSPHATASE 103 IU/L (3-129); GFR ESTIMATE (CALCULATED) 15 mL/min/
[2016-09-04 23:09] LABS: UREA NITROGEN (BUN) 36 mg/dL (9-23)
[2016-09-04 23:11] LABS: LIPASE 19 U/L (1.0-51.0)
[2016-09-04 23:25] LABS: BASE EXCESS 12.4 mEq/L (-3 to +3); BICARBONATE 37.3 mEq/L (22-26); CARBOXY HGB 2.4 % (0-5); PCO2 49 mm Hg (35-45); PO2 59 mm Hg (80-100); pH 7.49 (7.35-7.45)
[2016-09-04 23:27] LABS: COMMENTS - BLOOD GASES C+; DEVICE HHNC; FI02 100 %; O2 FLOW 60 L/MIN; SITE LB; TOTAL RESP RATE 19 resp/min
[2016-09-05] VITALS (23 sets, daily range): BP systolic 69–132; BP diastolic 38–83
[2016-09-05 00:24] LABS: MEAN PLAT.VOLUME 10.3 uM^3 (9.0-12.4); WHITE BLOOD COUNT 14.8 K/uL (4.1-10.2)
[2016-09-05] MEDS ORDERED: PRILOSEC20 MG PO (00:43)
[2016-09-05] MEDS ORDERED: RENVELA800 MG PO (00:45)
[2016-09-05] MEDS ORDERED: PROMETHAZINE HC25 M1 PO (00:50)
[2016-09-05] MEDS ORDERED: ZINC SULFATE220 MG PO (00:51)
[2016-09-05] MEDS ORDERED: RENAL CAPS SOFTG1 MG PO (00:55)
[2016-09-05] MEDS ORDERED: [UNRECOGNIZED DRUG - OTHER] PO (01:05)
[2016-09-05] MEDS ORDERED: WARFARIN SODIUM1 MG PO (01:07)
[2016-09-05 03:17] LABS: METH RESISTANT S AUREUS PCR POSITIVE (NEGATIVE)
[2016-09-05 03:19] LABS: PROBE CHECK PASS
[2016-09-05 06:23] LABS: POINT-OF-CARE METER ID UU13113731; POINT-OF-CARE USER ID PHATLC
[2016-09-05 07:14] LABS: HEMATOCRIT 29.6 % (38.0-50.0); MCH 30.1 PG (29.0-34.0); MCHC 30.4 G/DL (30.0-36.0); MEAN PLAT.VOLUME 11.4 uM^3 (9.0-12.4); PLATELET COUNT 174 K/uL (156-360); RBC DIS.WIDTH-CV 17.2 % (11.8-14.6); RBC DIS.WIDTH-SD 62.5 % (39-53); RED BLOOD COUNT 2.99 M/uL (4.00-5.50); WHITE BLOOD COUNT 14.2 K/uL (4.1-10.2)
[2016-09-05 07:35] LABS: ANION GAP 13 MEQ/L (2-14); CHLORIDE 92 MEQ/L (99-109); GFR ESTIMATE (CALCULATED) 15 mL/min/; GLUCOSE 119 mg/dL (70-99); POTASSIUM 4.6 MEQ/L (3.7-5.4); SAMPLE HEMOLYSIS CHECK 0; SAMPLE ICTERIC CHECK 0; SAMPLE LIPEMIA CHECK 0; SODIUM 136 MEQ/L (136-147); UREA NITROGEN (BUN) 39 mg/dL (9-23)
[2016-09-05 08:05] LABS: PROTHROMBIN TIME 110.7 (9.2-11.2); PTT 75.2 (25-32)
[2016-09-05 08:06] LABS: INTER. NORMALIZED RATIO 10.1
[2016-09-05 10:08] LABS: TROP-I INTERPRETATION POSITIVE; TROPONIN-I 18.74 ng/mL (0.0-0.30)
[2016-09-05 11:16] LABS: POINT-OF-CARE METER ID UU13113731
[2016-09-05 15:22] LABS: TROP-I INTERPRETATION POSITIVE; TROPONIN-I 16.35 ng/mL (0.0-0.30)
[2016-09-05 17:31] LABS: POINT-OF-CARE METER ID UU14162636
[2016-09-05 21:13] LABS: TROP-I INTERPRETATION POSITIVE
[2016-09-05 22:42] LABS: POINT-OF-CARE USER ID PHATLC
[2016-09-06] VITALS (21 sets, daily range): BP systolic 95–126; BP diastolic 58–75
[2016-09-06 07:32] LABS: HEMATOCRIT 25.5 % (38.0-50.0); MCH 30.6 PG (29.0-34.0); MCHC 30.2 G/DL (30.0-36.0); MCV 101.2 FL (86-99); MEAN PLAT.VOLUME 11.8 uM^3 (9.0-12.4); PLATELET COUNT 137 K/uL (156-360); RBC DIS.WIDTH-CV 17.1 % (11.8-14.6); RBC DIS.WIDTH-SD 62.2 % (39-53); RED BLOOD COUNT 2.52 M/uL (4.00-5.50); WHITE BLOOD COUNT 10.5 K/uL (4.1-10.2)
[2016-09-06 07:35] LABS: PTT 56.9 (25-32)
[2016-09-06 07:44] LABS: PROTHROMBIN TIME 20.8 (9.2-11.2)
[2016-09-06 07:47] LABS: ANION GAP 10 MEQ/L (2-14); CHLORIDE 97 MEQ/L (99-109); GFR ESTIMATE (CALCULATED) 27 mL/min/; GLUCOSE 97 mg/dL (70-99); POTASSIUM 4.1 MEQ/L (3.7-5.4); SAMPLE HEMOLYSIS CHECK 0; SAMPLE ICTERIC CHECK 0; SAMPLE LIPEMIA CHECK 0; SODIUM 139 MEQ/L (136-147); UREA NITROGEN (BUN) 26 mg/dL (9-23)
[2016-09-06 09:45] LABS: HBSG INDEX 0.31
[2016-09-06 09:47] LABS: BASE EXCESS 8.8 mEq/L (-3 to +3); COMMENTS - BLOOD GASES NEG A+C+; DEVICE VENT; FI02 70 %; METHEMOGLOBIN 1.3 % (0-1.5); MODE SPONT; PCO2 50 mm Hg (35-45); PO2 56 mm Hg (80-100); PRES. SUPPORT 10 CM/H2O; SITE LR; TOTAL RESP RATE 18 resp/min; pH 7.44 (7.35-7.45)
[2016-09-06 09:48] LABS: PEEP 5 CM/H20
[2016-09-06 12:25] LABS: POINT-OF-CARE METER ID UU13113731
[2016-09-06 16:16] LABS: POINT-OF-CARE METER ID UU13113731
[2016-09-06 20:42] LABS: HEMATOCRIT 24.3 % (38.0-50.0); MCH 30.5 PG (29.0-34.0); MCHC 30.5 G/DL (30.0-36.0); PLATELET COUNT 130 K/uL (156-360); RBC DIS.WIDTH-CV 17.3 % (11.8-14.6); RBC DIS.WIDTH-SD 63.4 % (39-53); RED BLOOD COUNT 2.43 M/uL (4.00-5.50); WHITE BLOOD COUNT 12.6 K/uL (4.1-10.2)
[2016-09-07] VITALS (23 sets, daily range): BP systolic 0–140; BP diastolic 0–74
[2016-09-07 01:10] LABS: TROP-I INTERPRETATION POSITIVE; TROPONIN-I 8.13 ng/mL (0.0-0.30)
[2016-09-07 05:40] LABS: POINT-OF-CARE METER ID UU13113731
[2016-09-07 06:29] LABS: HEMATOCRIT 21.8 % (38.0-50.0); MCH 32.1 PG (29.0-34.0); MCHC 31.2 G/DL (30.0-36.0); MCV 102.8 FL (86-99); MEAN PLAT.VOLUME 11.8 uM^3 (9.0-12.4); PLATELET COUNT 130 K/uL (156-360); RBC DIS.WIDTH-CV 17.4 % (11.8-14.6); RBC DIS.WIDTH-SD 65.8 % (39-53); RED BLOOD COUNT 2.12 M/uL (4.00-5.50); WHITE BLOOD COUNT 10.9 K/uL (4.1-10.2)
[2016-09-07 06:51] LABS: ANION GAP 11 MEQ/L (2-14); CHLORIDE 97 MEQ/L (99-109); GFR ESTIMATE (CALCULATED) 20 mL/min/; GLUCOSE 83 mg/dL (70-99); POTASSIUM 4.4 MEQ/L (3.7-5.4); SAMPLE HEMOLYSIS CHECK 0; SAMPLE ICTERIC CHECK 0; SAMPLE LIPEMIA CHECK 0; SODIUM 139 MEQ/L (136-147); UREA NITROGEN (BUN) 36 mg/dL (9-23)
[2016-09-07 06:51] LABS: PTT 73.1 (25-32)
[2016-09-07 06:52] LABS: PROTHROMBIN TIME 64.2 (9.2-11.2)
[2016-09-07 07:01] LABS: TROP-I INTERPRETATION POSITIVE; TROPONIN-I 8.19 ng/mL (0.0-0.30)
[2016-09-07 11:10] LABS: HEMATOCRIT 26.3 % (38.0-50.0); MCH 30.7 PG (29.0-34.0); MCHC 30.8 G/DL (30.0-36.0); MCV 99.6 FL (86-99); MEAN PLAT.VOLUME 11.7 uM^3 (9.0-12.4); PLATELET COUNT 143 K/uL (156-360); RBC DIS.WIDTH-SD 68.5 % (39-53)
[2016-09-07 11:11] LABS: RED BLOOD COUNT 2.64 M/uL (4.00-5.50); WHITE BLOOD COUNT 14.4 K/uL (4.1-10.2)
[2016-09-07 12:08] LABS: POINT-OF-CARE METER ID UU13113731
[2016-09-07 12:41] LABS: TROP-I INTERPRETATION POSITIVE; TROPONIN-I 10.09 ng/mL (0.0-0.30)
[2016-09-07 16:23] LABS: POINT-OF-CARE METER ID UU13113731
[2016-09-07 16:24] LABS: BASE EXCESS 5.1 mEq/L (-3 to +3); BICARBONATE 31.2 mEq/L (22-26); CARBOXY HGB 2.2 % (0-5); METHEMOGLOBIN 1.6 % (0-1.5); PCO2 54 mm Hg (35-45); PO2 62 mm Hg (80-100); pH 7.37 (7.35-7.45)
[2016-09-07 16:25] LABS: COMMENTS - BLOOD GASES A+C+; DEVICE VENT; SITE LR
[2016-09-07 16:26] LABS: CONTINUOUS POS AIRWAY PRESSURE 8 cm H2O; FI02 100 %; MODE SPON; PRES. SUPPORT 15 CM/H2O; TOTAL RESP RATE 27 resp/min
[2016-09-07 20:28] LABS: INTER. NORMALIZED RATIO 1.4; PROTHROMBIN TIME 14.5 (9.2-11.2)
[2016-09-07 22:24] LABS: POINT-OF-CARE METER ID UU13113731
[2016-09-08] VITALS (23 sets, daily range): BP systolic 79–126; BP diastolic 44–79
[2016-09-08 10:09] LABS: MCH 30.4 PG (29.0-34.0); MCHC 30.4 G/DL (30.0-36.0); MEAN PLAT.VOLUME 11.9 uM^3 (9.0-12.4); NRBC (%) 0.3 /100 WBC (0-0); PLATELET COUNT 116 K/uL (156-360); RBC DIS.WIDTH-CV 19.9 % (11.8-14.6); RBC DIS.WIDTH-SD 72.2 % (39-53); WHITE BLOOD COUNT 11.4 K/uL (4.1-10.2)
[2016-09-08 10:13] LABS: INTER. NORMALIZED RATIO 1.4; PROTHROMBIN TIME 14.7 (9.2-11.2); PTT 49.9 (25-32)
[2016-09-08 10:36] LABS: ANION GAP 10 MEQ/L (2-14); CHLORIDE 100 MEQ/L (99-109); GFR ESTIMATE (CALCULATED) 25 mL/min/; GLUCOSE 85 mg/dL (70-99); POTASSIUM 4.1 MEQ/L (3.7-5.4); SAMPLE HEMOLYSIS CHECK 0; SAMPLE ICTERIC CHECK 0; SAMPLE LIPEMIA CHECK 0; SODIUM 140 MEQ/L (136-147); UREA NITROGEN (BUN) 34 mg/dL (9-23)
[2016-09-08 13:05] LABS: POINT-OF-CARE METER ID UU14162636
[2016-09-08 16:56] LABS: POINT-OF-CARE METER ID UU14162636
[2016-09-08 23:04] LABS: POINT-OF-CARE METER ID UU14162636
[2016-09-09] VITALS (23 sets, daily range): BP systolic 96–131; BP diastolic 48–67
[2016-09-09 07:39] LABS: POINT-OF-CARE METER ID UU14162636
[2016-09-09 08:14] LABS: ANION GAP 16 MEQ/L (2-14); CHLORIDE 99 MEQ/L (99-109); GFR ESTIMATE (CALCULATED) 19 mL/min/; GLUCOSE 85 mg/dL (70-99); POTASSIUM 4.6 MEQ/L (3.7-5.4); SAMPLE HEMOLYSIS CHECK 0; SAMPLE ICTERIC CHECK 0; SAMPLE LIPEMIA CHECK 0; SODIUM 138 MEQ/L (136-147)
[2016-09-09 08:15] LABS: UREA NITROGEN (BUN) 52 mg/dL (9-23)
[2016-09-09 08:21] LABS: HEMATOCRIT 27.8 % (38.0-50.0); MCH 30.6 PG (29.0-34.0); MCHC 30.9 G/DL (30.0-36.0); MCV 98.9 FL (86-99); MEAN PLAT.VOLUME 12.5 uM^3 (9.0-12.4); NRBC (%) 0.2 /100 WBC (0-0); RBC DIS.WIDTH-CV 19.8 % (11.8-14.6); RBC DIS.WIDTH-SD 69.4 % (39-53); RED BLOOD COUNT 2.81 M/uL (4.00-5.50)
[2016-09-09 08:22] LABS: PLATELET COUNT 152 K/uL (156-360)
[2016-09-09 12:36] LABS: POINT-OF-CARE METER ID UU14162636
[2016-09-09 18:13] LABS: POINT-OF-CARE METER ID UU14162636
[2016-09-10] VITALS (24 sets, daily range): BP systolic 94–149; BP diastolic 45–78
[2016-09-10 07:49] LABS: HEMATOCRIT 26.6 % (38.0-50.0); MCH 30.2 PG (29.0-34.0); MCHC 30.1 G/DL (30.0-36.0); MCV 100.4 FL (86-99); MEAN PLAT.VOLUME 11.6 uM^3 (9.0-12.4); NRBC (%) 0.3 /100 WBC (0-0); PLATELET COUNT 131 K/uL (156-360); RBC DIS.WIDTH-CV 20.1 % (11.8-14.6); RBC DIS.WIDTH-SD 70.3 % (39-53); RED BLOOD COUNT 2.65 M/uL (4.00-5.50)
[2016-09-10 07:50] LABS: WHITE BLOOD COUNT 11.8 K/uL (4.1-10.2)
[2016-09-10 08:18] LABS: INTER. NORMALIZED RATIO 1.3; PROTHROMBIN TIME 12.9 (9.2-11.2); PTT 40.8 (25-32)
[2016-09-10 08:27] LABS: POTASSIUM 4.5 mEq/L (3.7-5.4); SODIUM 142 mEq/L (136-147)
[2016-09-10 08:29] LABS: GLUCOSE 68 mg/dL (70-99)
[2016-09-10 08:30] LABS: ANION GAP 15 MEQ/L (2-14); CHLORIDE 103 mEq/L (99-109)
[2016-09-10 08:33] LABS: GFR ESTIMATE (CALCULATED) 15 mL/min/
[2016-09-10 08:34] LABS: UREA NITROGEN (BUN) 68 mg/dL (9-23)
[2016-09-10 19:31] LABS: BASE EXCESS 4.4 mEq/L (-3 to +3); BICARBONATE 28.4 mEq/L (22-26); METHEMOGLOBIN 1.4 % (0-1.5); PCO2 39 mm Hg (35-45); PO2 54 mm Hg (80-100); pH 7.47 (7.35-7.45)
[2016-09-10 19:32] LABS: COMMENTS - BLOOD GASES C+; DEVICE NIV; FI02 30 %; MODE NIV; SITE LR; TOTAL RESP RATE 22 resp/min
[2016-09-10 19:33] LABS: PEEP 5 CM/H20; PRES. SUPPORT 10 CM/H2O
[2016-09-11] VITALS (25 sets, daily range): BP systolic 72–157; BP diastolic 40–83
[2016-09-11 05:32] LABS: POINT-OF-CARE METER ID UU14162636
[2016-09-11 07:18] LABS: EOSINOPHIL (%) 1.5 % (0-5); EOSINOPHIL COUNT 0.2 K/uL (0-0.3); HEMATOCRIT 25.6 % (38.0-50.0); IMMATURE GRANULOCYTE (%) 2.7 % (0.0-0.7); IMMATURE GRANULOCYTE COUNT 0.4 K/uL; INSTRUMENT ABS NEUTROPHIL CT 10.8 K/uL; LYMPHOCYTE COUNT 0.8 K/uL (1.0-2.8); MCH 31.7 PG (29.0-34.0); MCHC 31.3 G/DL (30.0-36.0); MCV 101.6 FL (86-99); MEAN PLAT.VOLUME 12.2 uM^3 (9.0-12.4); MONOCYTE COUNT 0.6 K/uL (0-0.8); NEUTROPHIL (%) 84.6 % (45-76); NEUTROPHIL COUNT 10.8 K/uL (1.8-6.4); NRBC (%) 0.2 /100 WBC (0-0); PLATELET COUNT 121 K/uL (156-360); RBC DIS.WIDTH-SD 70.8 % (39-53); RED BLOOD COUNT 2.52 M/uL (4.00-5.50); WHITE BLOOD COUNT 12.8 K/uL (4.1-10.2)
[2016-09-11 07:57] LABS: ANION GAP 16 MEQ/L (2-14); CHLORIDE 101 MEQ/L (99-109); GFR ESTIMATE (CALCULATED) 24 mL/min/; GLUCOSE 65 mg/dL (70-99); POTASSIUM 4.2 MEQ/L (3.7-5.4); SAMPLE HEMOLYSIS CHECK 0; SAMPLE ICTERIC CHECK 0; SAMPLE LIPEMIA CHECK 0; SODIUM 143 MEQ/L (136-147); UREA NITROGEN (BUN) 38 mg/dL (9-23)
[2016-09-11 12:53] LABS: POINT-OF-CARE METER ID UU14162636
[2016-09-11 17:43] LABS: POINT-OF-CARE METER ID UU14162636
[2016-09-12] VITALS (26 sets, daily range): BP systolic 83–163; BP diastolic 42–86
[2016-09-12 01:31] LABS: POINT-OF-CARE METER ID UU14174217
[2016-09-12 07:18] LABS: MCH 30.2 PG (29.0-34.0); MCHC 29.6 G/DL (30.0-36.0); MCV 101.8 FL (86-99); MEAN PLAT.VOLUME 12.8 uM^3 (9.0-12.4); NRBC (%) 0.3 /100 WBC (0-0); RBC DIS.WIDTH-CV 21.2 % (11.8-14.6); RBC DIS.WIDTH-SD 76.7 % (39-53); RED BLOOD COUNT 2.75 M/uL (4.00-5.50)
[2016-09-12 07:23] LABS: PLATELET COUNT 161 K/uL (156-360)
[2016-09-12 07:33] LABS: ANION GAP 24 MEQ/L (2-14); CHLORIDE 102 MEQ/L (99-109); SAMPLE HEMOLYSIS CHECK 0; SAMPLE ICTERIC CHECK 1; SAMPLE LIPEMIA CHECK 0; SODIUM 145 MEQ/L (136-147); VANCOMYCIN, TROUGH 18.1 MCG/ML (10-20)
[2016-09-12 07:37] LABS: GFR ESTIMATE (CALCULATED) 17 mL/min/; GLUCOSE 121 mg/dL (70-99); POTASSIUM 5.8 MEQ/L (3.7-5.4); UREA NITROGEN (BUN) 65 mg/dL (9-23)
[2016-09-12 11:50] LABS: POINT-OF-CARE METER ID UU13113731
[2016-09-12 17:35] LABS: POINT-OF-CARE METER ID UU13113731
[2016-09-12 22:11] LABS: CHLORIDE 104 mEq/L (99-109); POTASSIUM 4.9 mEq/L (3.7-5.4); SODIUM 145 mEq/L (136-147)
[2016-09-12 22:12] LABS: MAGNESIUM 2.7 mg/dL (1.3-2.7)
[2016-09-12 22:13] LABS: GLUCOSE 120 mg/dL (70-99)
[2016-09-12 22:14] LABS: ANION GAP 22 MEQ/L (2-14)
[2016-09-12 22:17] LABS: GFR ESTIMATE (CALCULATED) 29 mL/min/
[2016-09-12 22:18] LABS: UREA NITROGEN (BUN) 46 mg/dL (9-23)
[2016-09-13] VITALS (23 sets, daily range): BP systolic 80–123; BP diastolic 43–70
[2016-09-13 05:44] LABS: POINT-OF-CARE METER ID UU13113803
[2016-09-13 07:40] LABS: HEMATOCRIT 29.3 % (38.0-50.0); MCH 31.1 PG (29.0-34.0); MCHC 30.4 G/DL (30.0-36.0); MCV 102.4 FL (86-99); NRBC (%) 0.3 /100 WBC (0-0); PLATELET COUNT 131 K/uL (156-360); RBC DIS.WIDTH-SD 80.8 % (39-53); RED BLOOD COUNT 2.86 M/uL (4.00-5.50)
[2016-09-13 08:10] LABS: TROPONIN-I 5.63 ng/mL (0.0-0.30)
[2016-09-13 08:11] LABS: TROP-I INTERPRETATION POSITIVE
[2016-09-13 08:15] LABS: WHITE BLOOD COUNT 31.6 K/uL (4.1-10.2)
[2016-09-13 09:10] LABS: ANION GAP 31 MEQ/L (2-14); CHLORIDE 99 MEQ/L (99-109); GFR ESTIMATE (CALCULATED) 25 mL/min/; GLUCOSE 102 mg/dL (70-99); POTASSIUM 5.4 MEQ/L (3.7-5.4); SAMPLE HEMOLYSIS CHECK 0; SAMPLE ICTERIC CHECK 1; SAMPLE LIPEMIA CHECK 0; SODIUM 144 MEQ/L (136-147); UREA NITROGEN (BUN) 61 mg/dL (9-23)
[2016-09-13 12:24] LABS: POINT-OF-CARE METER ID UU13113803
[2016-09-13 18:28] LABS: POINT-OF-CARE METER ID UU13113803
[2016-09-13 22:34] LABS: EOSINOPHIL (%) 0 % (0-5); HEMATOCRIT 24.5 % (38.0-50.0); IMMATURE GRANULOCYTE (%) 2.3 % (0.0-0.7); IMMATURE GRANULOCYTE COUNT 0.7 K/uL; INSTRUMENT ABS NEUTROPHIL CT 29.1 K/uL; LYMPHOCYTE COUNT 0.3 K/uL (1.0-2.8); MCHC 28.6 G/DL (30.0-36.0); MONOCYTE (%) 2.9 % (3-12); MONOCYTE COUNT 0.9 K/uL (0-0.8); NEUTROPHIL (%) 93.8 % (45-76); NEUTROPHIL COUNT 29.1 K/uL (1.8-6.4); NRBC (%) 0.4 /100 WBC (0-0); PLATELET COUNT 106 K/uL (156-360); RBC DIS.WIDTH-CV 22.4 % (11.8-14.6); RBC DIS.WIDTH-SD 86.4 % (39-53)
[2016-09-13 22:41] LABS: MCV 108.4 FL (86-99); RED BLOOD COUNT 2.26 M/uL (4.00-5.50)
[2016-09-13 22:47] LABS: CHLORIDE 102 mEq/L (99-109); POTASSIUM 5.8 mEq/L (3.7-5.4); SODIUM 142 mEq/L (136-147)
[2016-09-13 22:48] LABS: AMYLASE 60 IU/L (1-118); MAGNESIUM 2.5 mg/dL (1.3-2.7)
[2016-09-13 22:50] LABS: GLUCOSE 108 mg/dL (70-99)
[2016-09-13 22:51] LABS: ANION GAP 31 MEQ/L (2-14)
[2016-09-13 22:52] LABS: TOTAL BILIRUBIN 4.9 mg/dL (0.0-1.0)
[2016-09-13 22:53] LABS: ALKALINE PHOSPHATASE 96 IU/L (3-129)
[2016-09-13 22:55] LABS: UREA NITROGEN (BUN) 71 mg/dL (9-23)
[2016-09-13 22:57] LABS: LIPASE 107 U/L (1.0-51.0)
[2016-09-13 23:16] LABS: GFR ESTIMATE (CALCULATED) 20 mL/min/
[2016-09-14] VITALS (19 sets, daily range): BP systolic 87–112; BP diastolic 38–50
[2016-09-14 00:06] LABS: POINT-OF-CARE METER ID UU13113803
[2016-09-14 00:07] LABS: PROTHROMBIN TIME 64.6 (9.2-11.2); PTT 72.7 (25-32)
[2016-09-14 03:57] LABS: POTASSIUM 4.9 mEq/L (3.7-5.4)
[2016-09-14 03:58] LABS: MAGNESIUM 2.3 mg/dL (1.3-2.7)
[2016-09-14 05:43] LABS: POINT-OF-CARE METER ID UU13113731
[2016-09-14 08:50] LABS: POINT-OF-CARE METER ID UU13113731
[2016-09-18 11:08] LABS: POINT-OF-CARE METER ID UU13113803
== END 2016-09-15 11:00 ==
LOC: EME → EDBD 20:55 → EME 20:55 → 5EAST 09-05 00:17 → 4WEST 09-05 00:17 → EDOF 09-05 00:17 → 4WEST 09-05 00:45 → 5EAST 09-14 14:25
PROVIDERS: Anesthesiology; Emergency Medicine; Internal Medicine; Internal Medicine Critical Care Medicine; Internal Medicine Nephrology; Internal Medicine Pulmonary Disease; Psychiatry & Neurology Neurology
DX: T80.211A Bloodstream infection due to central venous catheter, initial encounter (principal); A41.1 Sepsis due to other specified staphylococcus; R65.21 Severe sepsis with septic shock; I21.4 Non-ST elevation (NSTEMI) myocardial infarction; J96.21 Acute and chronic respiratory failure with hypoxia; R64 Cachexia; D68.9 Coagulation defect, unspecified; I95.9 Hypotension, unspecified; N18.6 End stage renal disease; J44.1 Chronic obstructive pulmonary disease with (acute) exacerbation; J44.0 Chronic obstructive pulmonary disease with (acute) lower respiratory infection; J18.9 Pneumonia, unspecified organism; I13.2 Hypertensive heart and chronic kidney disease with heart failure and with stage 5 chronic kidney disease, or end stage renal disease; I50.9 Heart failure, unspecified; Z99.2 Dependence on renal dialysis; E11.22 Type 2 diabetes mellitus with diabetic chronic kidney disease; Z99.81 Dependence on supplemental oxygen; F17.210 Nicotine dependence, cigarettes, uncomplicated; J45.909 Unspecified asthma, uncomplicated; R01.1 Cardiac murmur, unspecified; Z89.431 Acquired absence of right foot; I25.10 Atherosclerotic heart disease of native coronary artery without angina pectoris; I42.9 Cardiomyopathy, unspecified; G89.29 Other chronic pain; E11.21 Type 2 diabetes mellitus with diabetic nephropathy; E11.40 Type 2 diabetes mellitus with diabetic neuropathy, unspecified; E11.51 Type 2 diabetes mellitus with diabetic peripheral angiopathy without gangrene; G40.909 Epilepsy, unspecified, not intractable, without status epilepticus; M79.7 Fibromyalgia; G25.81 Restless legs syndrome; G47.30 Sleep apnea, unspecified; Z86.14 Personal history of Methicillin resistant Staphylococcus aureus infection; N40.0 Benign prostatic hyperplasia without lower urinary tract symptoms; K21.9 Gastro-esophageal reflux disease without esophagitis; E83.39 Other disorders of phosphorus metabolism; D63.1 Anemia in chronic kidney disease; N25.81 Secondary hyperparathyroidism of renal origin; Z87.81 Personal history of (healed) traumatic fracture; Z91.81 History of falling; Z86.73 Personal history of transient ischemic attack (TIA), and cerebral infarction without residual deficits; Z74.01 Bed confinement status; I45.10 Unspecified right bundle-branch block; T82.857A Stenosis of other cardiac prosthetic devices, implants and grafts, initial encounter; Z86.718 Personal history of other venous thrombosis and embolism; L89.153 Pressure ulcer of sacral region, stage 3; D50.9 Iron deficiency anemia, unspecified; I35.0 Nonrheumatic aortic (valve) stenosis; R53.1 Weakness; E87.6 Hypokalemia; Z68.1 Body mass index [BMI] 19.9 or less, adult; Z95.1 Presence of aortocoronary bypass graft; D68.51 Activated protein C resistance; R04.2 Hemoptysis; I47.1 Supraventricular tachycardia; I87.8 Other specified disorders of veins; Z51.5 Encounter for palliative care; R40.20 Unspecified coma
CPT/HCPCS: 36600; 36620; 71010; 71260; 74177; 80048; 80048 91; 80053; 80076; 80170; 80202; 81003; 82150; 82330; 82550; 82803; 82948; 83605; 83690; 83735; 83880; 84100; 84132 91; 84484; 85025; 85027; 85610; 85730; 86900; 86901; 86920; 87040; 87070; 87075; 87077; 87106; 87186; 87205; 87340; 87641; 87801; 93005; 93306; 94002; 94003; 94640; 94640 76; 94799; 99202; 99281; 99285; J0456; J0692; J0696; J0881; J1200; J1580; J1644; J1756; J1815; J2060; J2920; J3370; J3430; J7030; J7040; J7050; J7512; P9016; P9017; P9045; P9047; S0028; S0030